=== PATIENT | female | born 1985 | race Caucasian/White ===

== ENCOUNTER 2016-12-15 10:20 | Outpatient (CLI) ==
[2016-05-02 18:26] VITALS: BMI 62.4
--- NOTE | 2016-12-15 11:30 | CT ---
EXAM: CT of the left knee without contrast History: Left knee pain. Comparison: Left knee radiograph 06/16/2016 Technique: Multiplanar CT images through the left knee were obtained without the administration of IV contrast Findings: No acute fracture. Mild lateral subluxation of the patella. Small to moderate knee joint effusion. Anterior subcutaneous edema. No Ayon's cyst. Moderate narrowing of the medial compartment and mild to moderate narrowing of the lateral patellofe moral compartments. There is subchondral sclerosis and osteophyte formation. Impression: 1. No acute fracture. 2. Tricompartmental osteoarthritis which is most significant and moderate in the medial compartment . 3. Mild lateral subluxation of the patella. 4. Small to moderate knee joint effusion and anterior subcutaneous edema. If pain persists, consid er further evaluation with MRI.
== END 2016-12-15 10:21 | disposition home or self-care (01) ==
LOC: RAD 10:20
PROVIDERS: ATTEND Nurse Practitioner Family
DX: M25.562 Pain in left knee (principal); E66.01 Morbid (severe) obesity due to excess calories

== ENCOUNTER 2016-12-16 10:26 | Outpatient (CLI) ==
[2016-05-02 18:26] VITALS: BMI 62.4
--- NOTE | 2016-12-16 11:33 | CT ---
EXAM: CT right knee without contrast HISTORY: Right knee pain COMPARISON: None available TECHNIQUE: Multiple axial images of the right knee were obtained without intravenous contrast image s were reformatted in the sagittal and coronal planes. FINDINGS: Bone mineralization is normal. Mild medial compartment joint space narrowing noted. Mil d tricompartmental marginal osteophyte formation is present. No erosive changes are seen. No fract ure or dislocation identified. Suprapatellar joint effusion is present. Mild subcutaneous edema no rosalind anteriorly. No circumscribed drainable fluid collection detected IMPRESSION: 1. Mild tricompartmental osteoarthritis, greatest in the medial compartment. 2. Joint effusion. 3. Anterior subcutaneous edema.
== END 2016-12-16 10:27 | disposition home or self-care (01) ==
LOC: RAD 10:26
PROVIDERS: ATTEND Nurse Practitioner Family
DX: M25.561 Pain in right knee (principal); E66.01 Morbid (severe) obesity due to excess calories

== ENCOUNTER 2017-02-02 07:16 | Outpatient (CLI) ==
[2016-05-02 18:26] VITALS: BMI 62.4
[2017-02-02 07:34] LABS: BASOPHILS % (AUTO) 0.5 % (0.0-3.0); EOSINOPHILS # (AUTO) 0.4 K/ul (0.0-0.7); HEMATOCRIT 36.9 % (37.0-47.0); IMMATURE GRANULOCYTE % (AUTO) 0.3 % (0.0-5.0); LYMPHOCYTES # (AUTO) 2.1 K/uL (0.60-3.4); LYMPHOCYTES % (AUTO) 24.3 (10.0-50.0); MEAN CORPUSCULAR HEMOGLOBIN 28.1 pg (27.0-31.0); MEAN CORPUSCULAR HGB CONC 32.5 (31.8-35.4); MEAN CORPUSCULAR VOLUME 86.4 fl (81.0-99.0); MONOCYTES # (AUTO) 0.5 K/uL (0.4-2.0); MONOCYTES % (AUTO) 6.2 (0-10); NEUTROPHILS # (AUTO) 5.6 K/ul (2.0-6.9); NEUTROPHILS % (AUTO) 63.7; PLATELET COUNT 177 10^3/uL (140-440); RED BLOOD COUNT 4.27 10^6/ul (4.20-5.40); WHITE BLOOD COUNT 8.76 K/ul (4.6-10.2)
[2017-02-02 08:15] LABS: ANION GAP 12.1; BUN/CREATININE RATIO 10.71; CALCIUM 8.7 mg/dL (8.2-10.2); CREATININE 0.84 mg/dL (0.60-1.30); POTASSIUM 3.1 mmol/L (3.5-5.10)
== END 2017-02-02 07:17 | disposition home or self-care (01) ==
LOC: LAB 07:16
PROVIDERS: ATTEND Nurse Practitioner
DX: E06.3 Autoimmune thyroiditis (principal); E22.9 Hyperfunction of pituitary gland, unspecified; E55.9 Vitamin D deficiency, unspecified; R53.83 Other fatigue; E66.01 Morbid (severe) obesity due to excess calories
CPT/HCPCS: 36415; 80048; 82306; 83036; 84146; 84443; 85025

== ENCOUNTER 2017-03-01 13:23 | Emergency (ER) ==
[2017-03-01 13:27] VITALS: BP 134/86; TEMP 99
[2017-03-01] MEDS ORDERED: MORPHINE 4 MG/ML SYRINGE IM STA (13:36)
[2017-03-01] MEDS ORDERED: DECADRON 4 MG/ML SDV IM STA (13:36)
[2017-03-01] MEDS ORDERED: ZOFRAN 4 MG/2 ML IM STA (13:36)
[2017-03-01 13:43] LABS: URINE PREGNANCY INTERNAL QC INTERNAL QC VALID
--- NOTE | 2017-03-01 14:28 | CT ---
EXAM: CT right knee without contrast HISTORY: Right knee pain and swelling TECHNIQUE: Multi-slice transaxial helical with coronal and sagittal reformed images COMPARISON: CT right knee from 12/16/2016 FINDINGS: The medial femoral tibial joint space is moderately narrowed. Marginal osteophytes arise about the knee. No acute fracture or subluxation are appreciated. A large suprapatellar effusion i s detected. No significant Ayon's cyst is appreciated. There are no loose osteochondral bodies. The patellofemoral joint space is mildly narrowed. The bones are free of suspicious osteolytic or osteoblastic lesions. IMPRESSION: 1. Large suprapatellar effusion without loose osteochondral bodies. 2. No acute fracture or subluxation. 3. Tricompartmental osteoarthritis, most pronounced and moderate in severity at the medial femoral tibial compartment.
--- NOTE | 2017-03-01 14:35 | ED.PDOC ---
General ED Provider: Dr. LG RUST-ER Chief Complaint: Knee Pain/Injury Stated Complaint: my knee hurts bad--mel got bad athritis in it Time Seen by Physician: 13:25 Mode of Arrival: Walk-In Information Source: Patient Exam Limitations: No limitations Primary Care Provider: JAYLON AVILA Nursing and Triage Documentation Reviewed and Agree: Yes Musculoskeletal Complaint Exam - Knee Pain Complaint/Exam Mechanism of Injury: Reports: No known trauma Onset/Duration: several days Symptoms Are: Still present Onset of Pain: Reports: Immediate Initial Severity: Mild Current Severity: Moderate Location: Reports: Discrete (right knee) Character: Reports: Dull, Aching, Stiffness Alleviating: Reports: None Aggravating: Reports: Movement, Weight bearing, Prolonged standing Associated Signs and Symptoms: Reports: Swelling. Denies: Redness, Bruising, Fever, Weakness, Numbness, Tingling Able to Bear Weight: Yes Related History: Reports: Similar episode Septic Arthritis Risk Factors: Reports: None Knee Findings: Present: Swelling, Tenderness, Limited range of motion Tenderness: Present: Pre-patellar Allison Test Positive: No Rao Test Positive: No Limited Range of Motion: Present: Active, Passive, Flexion, Extension Differential Diagnoses: Bursitis, Sprain, Strain, Other Review of Systems - Review Of Systems Constitutional: Reports: No symptoms Eyes: Reports: No symptoms Ears, Nose, Mouth, Throat: Reports: No symptoms Respiratory: Reports: No symptoms Cardiac: Reports: No symptoms GI: Reports: No symptoms : Reports: No symptoms Musculoskeletal: Reports: Joint pain, Joint swelling Skin: Reports: No symptoms Neurological: Reports: No symptoms Endocrine: Reports: No symptoms Hematologic/Lymphatic: Reports: No symptoms All Other Systems: Reviewed and Negative Past Medical History - Past Medical History Previously Healthy: No Endocrine: Reports: Hypothyroid, Dyslipidemia Cardiovascular: Reports: Hypertension Respiratory: Reports: COPD, Asthma Hematological: Reports: None Gastrointestinal: Reports: None, GERD Genitourinary: Reports: None Neuro/Psych: Reports: Anxiety, Depression Musculoskeletal: Reports: Arthritis, Unknown Cancer: Reports: None Last Menstrual Period: 4-5 years ago Other Pertinent Past Medical History: ESS, EMPTY SELLA SYNDROME,oab, - Surgical History General Surgical History: Reports: Cholecystectomy, Tonsillectomy, Orthopedic ( LEFT CARPAL TUNnEL ), Other (Teeth Extractions BIOPSY AND SKIN TAG REMOVAL) - Family History Family History: Reports: Unknown - Social History Smoking Status: Never smoker Hx Substance Use: No Alcohol Screening: None Lives: With family Physical Exam - Physical Exam Appearance: Well-appearing, No pain distress, Well-nourished Pain Distress: Moderate Eyes: LUIS ENT: Ears normal Neck: Supple Respiratory: Airway patent Cardiovascular: RRR, Pulses normal, No rub, No murmur GI/: Soft Musculoskeletal: Limited ROM Skin: Warm, Dry, Normal color Neurological: Sensation intact, Motor intact, Reflexes intact, Cranial nerves intact, Alert, Oriented Psychiatric: Affect appropriate, Mood appropriate Interpretation - Radiology Interpretation Radiology Interpretation By: Radiologist Radiology Results: Positive Exam Interpreted: CT Scan Critical Care Note - Critical Care Note Total Time (mins): 0 Course - Course Orders, Labs, Meds: Lab Review 03/01/17 13:35 Urine Test Negative Orders Category Date Time Status URINE Stat LAB 03/01/17 13:35 Completed Dexamethasone 4 mg/ml Inj [Decadron 4 mg/ml Sdv] MEDS 03/01/17 13:36 Discontinued 4 mg IM ONCE STA Morphine Sulfate [Morphine 4 mg/ml Syringe] MEDS 03/01/17 13:36 Discontinued 4 mg IM ONCE STA Ondansetron HCl/Pf [Zofran 4 mg/2 ml] MEDS 03/01/17 13:36 Discontinued 4 mg IM ONCE STA CT KNEE RIGHT WITHOUT CONTRAST Stat RADS 03/01/17 13:35 Completed Medications Discontinued Medications Generic Name Dose Route Start Last Admin Trade Name Freq PRN Reason Stop Dose Admin Dexamethasone Sodium Phosphate 4 mg 03/01/17 13:36 03/01/17 14:10 Decadron 4 Mg/Ml Sdv IM 03/01/17 13:37 4 mg ONCE STA Administration Morphine Sulfate 4 mg 03/01/17 13:36 03/01/17 14:12 Morphine 4 Mg/Ml Syringe IM 03/01/17 13:37 4 mg ONCE STA Administration Ondansetron HCl 4 mg 03/01/17 13:36 03/01/17 14:12 Zofran 4 Mg/2 Ml IM 03/01/17 13:37 4 mg ONCE STA Administration Vital Signs: Temp Pulse Resp BP Pulse Ox 03/01/17 13:23 99.0 F 117 H 18 134/86 95 Departure - Departure Time of Disposition: 14:35 Disposition: HOME SELF-CARE Discharge Problem: Arthritis of knee Instructions: Arthritis (ED) Condition: Fair Pt referred to PMD for follow-up: Yes Additional Instructions: norco 7.5mg q 4hrs prn pain #15--f/u with pcp Allergies/Adverse Reactions: Allergies tetanus toxoid, adsorbed Adverse Reaction (Verified 03/01/17 13:27) theophylline Adverse Reaction (Verified 03/01/17 13:27) cloth tape Allergy (Mild, Uncoded 03/01/17 13:27) breaks out skin pneumonia vaccine Adverse Reaction (Uncoded 03/01/17 13:27) Home Medications: Ambulatory Orders Medroxyprogesterone Acetate [Provera] 10 mg PO DAILY 08/20/14 [place]-3 Fatty Acids/Fish Oil [Fish Oil 1,000 mg Capsule] 1 each PO BID 12/12/14 Levothyroxine Sodium 112 mcg PO DAILY 05/14/15 Ipratropium/Albuterol Neb [Duoneb] 1 vial NEB RTBID #20 vial.neb 11/07/15 Chlorthalidone 25 mg PO d 01/30/16 Cholecalciferol (Vitamin D3) [Vitamin D3] 5,000 unit PO WEEKLY 06/16/16 Cyanocobalamin (Vitamin B-12) [Vitamin B-12] 1,000 mcg IJ MONTHLY #1 vial Citalopram Hydrobromide [Celexa] 40 mg PO BEDTIME #30 07/23/16 Clonazepam 0.5 mg PO QID #120 07/23/16 Trazodone HCl 150 mg PO BEDTIME #30 07/23/16 [place] Carbonate [[place] Carbonate Er] 450 mg PO BEDTIME #30 10/29/16 Oxybutynin Chloride [Ditropan Xl] 10 mg PO DAILY 12/14/16 Disposition Discussed With: Patient, Family
[2017-03-01 14:45] VITALS: BMI 71.6
== END 2017-03-01 14:41 | disposition home or self-care (01) ==
LOC: ED 13:23
DX: M17.11 Unilateral primary osteoarthritis, right knee (principal)
CPT/HCPCS: 81025; 96372; 99282

== ENCOUNTER 2017-03-22 07:56 | Outpatient (CLI) ==
[2017-03-22 08:31] LABS: ALBUMIN 3.3 g/dL (3.4-5.0); ALBUMIN/GLOBULIN RATIO 1.03; ANION GAP 13.3; BILIRUBIN,TOTAL 0.45 mg/dL (0.00-1.20); BUN/CREATININE RATIO 19.1; CALCIUM 9.4 mg/dL (8.2-10.2); CREATININE 0.89 mg/dL (0.60-1.30); POTASSIUM 4.3 mmol/L (3.5-5.10); TOTAL PROTEIN 6.5 g/dL (6.4-8.2)
== END 2017-03-22 07:57 | disposition home or self-care (01) ==
LOC: LAB 07:56
PROVIDERS: ATTEND Nurse Practitioner
DX: E66.01 Morbid (severe) obesity due to excess calories (principal); Z68.45 Body mass index [BMI] 70 or greater, adult; Z86.79 Personal history of other diseases of the circulatory system; R60.9 Edema, unspecified
CPT/HCPCS: 36415; 80053

== ENCOUNTER 2017-05-14 09:14 | Outpatient (CLI) ==
[2017-05-14 10:11] LABS: BASOPHILS # (AUTO) 0.1 K/uL (0-0.2); BASOPHILS % (AUTO) 0.6 % (0.0-3.0); EOSINOPHILS # (AUTO) 0.4 K/ul (0.0-0.7); EOSINOPHILS % (AUTO) 4.9 % (0.0-7.0); HEMATOCRIT 37.3 % (37.0-47.0); HEMOGLOBIN 12.5 g/dl (12.0-16.0); IMMATURE GRANULOCYTE % (AUTO) 0.4 % (0.0-5.0); LYMPHOCYTES # (AUTO) 1.9 K/uL (0.60-3.4); LYMPHOCYTES % (AUTO) 21.9 (10.0-50.0); MEAN CORPUSCULAR HEMOGLOBIN 28.5 pg (27.0-31.0); MEAN CORPUSCULAR HGB CONC 33.5 (31.8-35.4); MEAN CORPUSCULAR VOLUME 85.2 fl (81.0-99.0); MONOCYTES # (AUTO) 0.6 K/uL (0.4-2.0); MONOCYTES % (AUTO) 7.3 (0-10); NEUTROPHILS # (AUTO) 5.5 K/ul (2.0-6.9); NEUTROPHILS % (AUTO) 64.9; PLATELET COUNT 181 10^3/uL (140-440); RED BLOOD COUNT 4.38 10^6/ul (4.20-5.40); WHITE BLOOD COUNT 8.45 K/ul (4.6-10.2)
[2017-05-14 10:12] LABS: BILIRUBIN,URINE Negative (NEGATIVE); KETONES,URINE Negative (NEGATIVE); LEUKOCYTE ESTERASE ,URINE Negative (NEGATIVE); NITRITE,URINE Negative (NEGATIVE); PROTEIN,URINE Negative (NEGATIVE); URINE, BLOOD Negative (NEGATIVE)
[2017-05-14 10:31] LABS: ALANINE AMINOTRANSFERASE 14 U/L (12-78); ALBUMIN 3.4 g/dL (3.4-5.0); ALBUMIN/GLOBULIN RATIO 1.06; ALKALINE PHOSPHATASE 48 U/L (42-98); AMYLASE 33 U/L (25-115); ANION GAP 11.4; ASPARTATE AMINO TRANSFERASE 10 U/L (15-37); BILIRUBIN,TOTAL 0.38 mg/dL (0.00-1.20); BLOOD UREA NITROGEN 17 mg/dL (7-18); BUN/CREATININE RATIO 19.31; CALCIUM 9.7 mg/dL (8.2-10.2); CARBON DIOXIDE 29 mmol/L (21-32); CHLORIDE 101 mmol/L (98-107); CREATININE 0.88 mg/dL (0.60-1.30); GLUCOSE 87 mg/dL (70-110); POTASSIUM 3.4 mmol/L (3.5-5.10); SODIUM 138 mmol/L (136-145); TOTAL PROTEIN 6.6 g/dL (6.4-8.2)
[2017-05-14 10:38] LABS: LIPASE < 4 U/L (8-78)
[2017-05-14 10:39] LABS: ADD URINE MICROSCOPIC NO
--- NOTE | 2017-05-14 10:57 | DI ---
EXAM: Abdominal series HISTORY: Unspecified abdominal pain COMPARISON: None TECHNIQUE: Supine upright views of the abdomen were performed FINDINGS: No dilated loops of small bowel. Air and stool in the colon. Mild fecal retention. No fr ee air identified beneath the diaphragm. No abnormal calcifications. Surgical clips right upper jasmyne drant. Granulomatous calcification in the spleen. IMPRESSION: Mild fecal retention.
== END 2017-05-14 09:15 | disposition home or self-care (01) ==
LOC: LAB 09:14
PROVIDERS: ATTEND Nurse Practitioner Family
DX: R10.9 Unspecified abdominal pain (principal); K59.00 Constipation, unspecified; M25.562 Pain in left knee
CPT/HCPCS: 36415; 80053; 81001; 82150; 83690; 85025

== ENCOUNTER 2017-07-07 12:00 | Outpatient (CLI) ==
[2017-05-26 14:47] VITALS: BMI 70.0
[2017-07-07 12:53] LABS: BASOPHILS # (AUTO) 0.1 K/uL (0-0.2); BASOPHILS % (AUTO) 0.6 % (0.0-3.0); EOSINOPHILS # (AUTO) 0.4 K/ul (0.0-0.7); EOSINOPHILS % (AUTO) 5.2 % (0.0-7.0); HEMATOCRIT 38.3 % (37.0-47.0); HEMOGLOBIN 12.6 g/dl (12.0-16.0); IMMATURE GRANULOCYTE % (AUTO) 0.4 % (0.0-5.0); LYMPHOCYTES # (AUTO) 1.5 K/uL (0.60-3.4); MEAN CORPUSCULAR HEMOGLOBIN 28.2 pg (27.0-31.0); MEAN CORPUSCULAR HGB CONC 32.9 (31.8-35.4); MEAN CORPUSCULAR VOLUME 85.7 fl (81.0-99.0); MONOCYTES # (AUTO) 0.5 K/uL (0.4-2.0); MONOCYTES % (AUTO) 6.2 (0-10); NEUTROPHILS # (AUTO) 5.4 K/ul (2.0-6.9); NEUTROPHILS % (AUTO) 68.6; PLATELET COUNT 184 10^3/uL (140-440); RED BLOOD COUNT 4.47 10^6/ul (4.20-5.40); WHITE BLOOD COUNT 7.89 K/ul (4.6-10.2)
[2017-07-07 13:38] LABS: ALBUMIN 3.3 g/dL (3.4-5.0); ALBUMIN/GLOBULIN RATIO 0.87; ANION GAP 10.4; BILIRUBIN,TOTAL 0.43 mg/dL (0.00-1.20); BUN/CREATININE RATIO 13.18; CALCIUM 9.4 mg/dL (8.2-10.2); CREATININE 0.91 mg/dL (0.60-1.30); POTASSIUM 3.4 mmol/L (3.5-5.10); TOTAL PROTEIN 7.1 g/dL (6.4-8.2)
[2017-07-08 06:13] LABS: PROLACTIN 15.7 ng/mL (4.8-23.3)
[2017-07-08 07:22] LABS: LITHIUM 0.5 mmol/L (0.6-1.2)
== END 2017-07-07 12:01 | disposition home or self-care (01) ==
LOC: LAB 12:00
PROVIDERS: ATTEND Nurse Practitioner
DX: E22.9 Hyperfunction of pituitary gland, unspecified (principal); E03.9 Hypothyroidism, unspecified; E87.6 Hypokalemia; E55.9 Vitamin D deficiency, unspecified; Z79.899 Other long term (current) drug therapy
CPT/HCPCS: 36415; 80053; 80178; 82306; 84146; 84439; 84443; 85025

== ENCOUNTER 2017-07-17 20:43 | Emergency (ER) ==
[2017-07-17 20:44] VITALS: BMI 70.0
[2017-07-17 20:54] VITALS: BP 137/80; TEMP 98.3
--- NOTE | 2017-07-17 21:09 | ED.PDOC ---
General ED Provider: Dr. GERSON CARUSO Chief Complaint: Extremity Swelling/Pain Stated Complaint: injured right knee 2 days ago, its been hurting ever since and has some swelling. Time Seen by Physician: 21:07 Mode of Arrival: Walk-In Information Source: Patient, Family Primary Care Provider: GERSON [facility]USO[facility] Nursing and Triage Documentation Reviewed and Agree: Yes Musculoskeletal Complaint Exam - Knee Pain Complaint/Exam Mechanism of Injury: Reports: Trauma Symptoms Are: Still present Onset of Pain: Reports: Immediate Initial Severity: Moderate Current Severity: Severe Location: Reports: Discrete Character: Reports: Aching, Throbbing Alleviating: Reports: None Aggravating: Reports: Movement, Weight bearing Associated Signs and Symptoms: Reports: Swelling. Denies: Redness, Bruising, Fever, Weakness, Numbness, Tingling Able to Bear Weight: No Related History: Reports: Similar episode Septic Arthritis Risk Factors: Reports: None Gout Risk Factors: Reports: Obesity Knee Findings: Present: Swelling. Absent: Ecchymosis, Abnormal contour Tenderness: Present: Pre-patellar, Joint Allison Test Positive: No Rao Test Positive: No Limited Range of Motion: Present: Active, Passive, Flexion, Extension Differential Diagnoses: Closed Fracture, Sprain, Strain Review of Systems - Review Of Systems Constitutional: Reports: No symptoms Eyes: Reports: No symptoms Ears, Nose, Mouth, Throat: Reports: No symptoms Respiratory: Reports: No symptoms Cardiac: Reports: No symptoms GI: Reports: No symptoms : Reports: No symptoms Musculoskeletal: Reports: Joint pain Skin: Reports: No symptoms Neurological: Reports: No symptoms Endocrine: Reports: No symptoms Hematologic/Lymphatic: Reports: No symptoms All Other Systems: Reviewed and Negative Past Medical History - Past Medical History Previously Healthy: No Endocrine: Reports: Hypothyroid, Dyslipidemia Cardiovascular: Reports: Hypertension Respiratory: Reports: COPD, Asthma Hematological: Reports: None Gastrointestinal: Reports: None, GERD Genitourinary: Reports: None Neuro/Psych: Reports: Anxiety, Depression Musculoskeletal: Reports: Arthritis, Unknown Cancer: Reports: None Last Menstrual Period: 5 yrs ago - on provera Other Pertinent Past Medical History: ESS, EMPTY SELLA SYNDROME,oab, - Surgical History General Surgical History: Reports: Cholecystectomy, Tonsillectomy, Orthopedic ( LEFT CARPAL TUNnEL ), Other (Teeth Extractions BIOPSY AND SKIN TAG REMOVAL) - Family History Family History: Reports: Unknown - Social History Smoking Status: Never smoker Hx Substance Use: No Alcohol Screening: None - Immunizations Tetanus Shot up to Date: No (allergic - anaphalactic) Physical Exam - Physical Exam Appearance: Obese (morbid) Pain Distress: Moderate Eyes: LUIS, EOMI, Conjunctiva clear ENT: Ears normal, Nose normal, Oropharynx normal Respiratory: Airway patent, Breath sounds clear, Breath sounds equal, Respirations nonlabored Cardiovascular: RRR, Pulses normal, No rub, No murmur GI/: Soft, Nontender, No masses, Bowel sounds normal, No Organomegaly Musculoskeletal: No edema, No calf tenderness, Limited ROM, Limited strength Skin: Warm, Dry, Normal color Neurological: Sensation intact, Motor intact, Reflexes intact, Cranial nerves intact, Alert, Oriented Psychiatric: Affect appropriate, Mood appropriate Critical Care Note - Critical Care Note Total Time (mins): 15 Course - Course Orders, Labs, Meds: Orders Category Date Time Status Morphine Sulfate [Morphine 2 mg/ml Syringe] MEDS 07/17/17 21:06 Discontinued 2 mg IM ONCE STA Ondansetron HCl/Pf [Zofran 4 mg/2 ml] MEDS 07/17/17 21:06 Discontinued 4 mg IM ONCE STA CT KNEE RIGHT WITHOUT CONTRAST Stat RADS 07/17/17 21:06 Taken Medications Discontinued Medications Generic Name Dose Route Start Last Admin Trade Name Sara PRN Reason Stop Dose Admin Morphine Sulfate 2 mg 07/17/17 21:06 07/17/17 21:24 Morphine 2 Mg/Ml Syringe IM 07/17/17 21:07 2 mg ONCE STA Administration Ondansetron HCl 4 mg 07/17/17 21:06 07/17/17 21:24 Zofran 4 Mg/2 Ml IM 07/17/17 21:07 4 mg ONCE STA Administration Vital Signs: Temp Pulse Resp BP Pulse Ox 07/17/17 20:47 98.3 F 98 H 22 137/80 97 Departure - Departure Time of Disposition: 21:36 Disposition: HOME SELF-CARE Discharge Problem: Knee pain, acute Qualifiers: Laterality: right Qualified Code(s): M25.561 - Pain in right knee Instructions: Swollen Knee Joint (ED) Condition: Good Pt referred to PMD for follow-up: Yes Additional Instructions: REST HOT PACK F/U WITH [facility] Prescriptions: Hydrocodone Bit/Acetaminophen [[place] 7.5-325] 1 each PO Q8H #10 tablet Prednisone 10 mg PO BIDWM #14 tablet Allergies/Adverse Reactions: Allergies tetanus toxoid, adsorbed Adverse Reaction (Verified 07/17/17 20:54) theophylline Adverse Reaction (Verified 07/17/17 20:54) cloth tape Allergy (Mild, Uncoded 07/17/17 20:54) breaks out skin pneumonia vaccine Adverse Reaction (Uncoded 07/17/17 20:54) Home Medications: Ambulatory Orders Medroxyprogesterone Acetate [Provera] 10 mg PO DAILY 08/20/14 [place]-3 Fatty Acids/Fish Oil [Fish Oil 1,000 mg Capsule] 1 each PO BID 12/12/14 Ipratropium/Albuterol Neb [Duoneb] 1 vial NEB RTBID #20 vial.neb 11/07/15 Chlorthalidone 25 mg PO d 01/30/16 Cholecalciferol (Vitamin D3) [Vitamin D3] 5,000 unit PO WEEKLY 06/16/16 Cyanocobalamin (Vitamin B-12) [Vitamin B-12] 1,000 mcg IJ MONTHLY #1 vial Citalopram Hydrobromide [Celexa] 40 mg PO BEDTIME #30 07/23/16 Clonazepam 0.5 mg PO QID #120 07/23/16 Trazodone HCl 150 mg PO BEDTIME #30 07/23/16 [place] Carbonate [[place] Carbonate Er] 450 mg PO BEDTIME #30 10/29/16 Oxybutynin Chloride [Ditropan Xl] 10 mg PO DAILY 12/14/16 Budesonide/Formoterol Fumarate [Symbicort 160-4.5 Mcg Inhaler] 10.2 gm IH DAILY 03/12/17 Levothyroxine Sodium 112 mcg PO DAILY 03/12/17 Metformin HCl [Metformin HCl ER] 500 mg PO BID 05/26/17 Hydrocodone Bit/Acetaminophen [[place] 7.5-325] 1 each PO Q8H #10 tablet 07/17/17 Potassium Chloride [K-Dur] 20 meq PO DIRECTED 07/17/17 Potassium Chloride [K-Dur] 40 meq PO DIRECTED 07/17/17 Prednisone 10 mg PO BIDWM #14 tablet 07/17/17 Disposition Discussed With: Patient, Family
[2017-07-17] MEDS: ZOFRAN 4 MG/2 ML IM STA (21:24)
[2017-07-17] MEDS: MORPHINE 2 MG/ML SYRINGE IM STA (21:24)
--- NOTE | 2017-07-17 21:35 | CT ---
EXAM: CT scan of the right knee without contrast HISTORY: Injury, pain TECHNIQUE: Imaging of the right knee was performed without contrast. Axial images and coronal and s agittal reconstructions were provided for interpretation. FINDINGS: No definite acute fractures are seen. There is moderate to severe loss of height of the m edial compartment of the right knee. There is mild loss of height of the lateral compartment of the right knee. Additional degenerative changes are seen within the patellofemoral articulation. There i s a small suprapatellar joint effusion. IMPRESSION: No acute fracture dislocation seen within the right knee. Tricompartmental arthritis of the right knee. Small suprapatellar joint effusion.
== END 2017-07-17 21:47 | disposition home or self-care (01) ==
LOC: ED 20:43
DX: M25.561 Pain in right knee (principal); M25.461 Effusion, right knee
CPT/HCPCS: 96372; 99282

== ENCOUNTER 2017-10-02 14:59 | Emergency (ER) ==
[2017-10-02 15:04] VITALS: BP 139/87; TEMP 98.2; BMI 64.0
--- NOTE | 2017-10-02 15:41 | ED.PDOC ---
General ED Provider: Dr. CELESTE ABURTO Chief Complaint: Tooth Problem Stated Complaint: dental pain Time Seen by Physician: 15:00 Mode of Arrival: Walk-In Information Source: Patient Exam Limitations: No limitations [facility] and Triage Documentation Reviewed and Agree: Yes Reviewed sepsis parameters & appropriate labs ordered?: Yes System Inflammatory Response Syndrome: Not Applicable Sepsis Protocol: For patient's 13 years and over: Temp is 96.8 and below OR 101 and greater Pulse >90 BPM Resp >20/minute Acutely Altered Mental Status Are patient's symptoms suggestive of a new infection, such as: -Pneumonia -Skin, Soft Tissue -Endocarditis -UTI -Bone, Joint Infection -Implantable Device -Acute Abdominal Infection -Wound Infection -Meningitis -Blood Stream Catheter Infection -Unknown EENT Complaint Exam - Dental/Oral Complaint/Exam Mechanism of Injury: No known trauma Onset/Duration: dental painx 1 week Timing: Constant Initial Severity: Moderate Current Severity: Moderate Character: Reports: Aching Aggravating: Reports: Heat, Cold, Chewing Alleviating: Reports: None Associated Signs and Symptoms: Denies: Swelling, Discharge, Fever, Foul odor, Foul taste in mouth Related History: Reports: Similar episode Cardiac Risk Factors: Reports: None Dental/Oral Surgical History: Reports: None Facial Swelling Present: No Bleeding Present: No Oropharynx Findings: Absent: Clots, Active bleeding Septal Hematoma: No Foreign Body Present: No Dysphagia Present: No Drooling Present: No Asymmetrical Tonsillar Swelling Present: No Uvula Midline: No Britt-tonsillar Fluctuence: No Trismus Present: No Palatal Petechiae Present: No Scarlatinaform Rash Present: No Teeth Picture: 1 - decay Differential Diagnoses: Dental Caries Review of Systems - Review Of Systems Constitutional: Reports: No symptoms Eyes: Reports: No symptoms Ears, Nose, Mouth, Throat: Reports: No symptoms Respiratory: Reports: No symptoms Cardiac: Reports: No symptoms GI: Reports: No symptoms : Reports: No symptoms Musculoskeletal: Reports: No symptoms Skin: Reports: No symptoms Neurological: Reports: No symptoms Endocrine: Reports: No symptoms Hematologic/Lymphatic: Reports: No symptoms All Other Systems: Reviewed and Negative Past Medical History - Past Medical History Previously Healthy: No Endocrine: Reports: Hypothyroid, Dyslipidemia Cardiovascular: Reports: Hypertension Respiratory: Reports: COPD, Asthma Hematological: Reports: None Gastrointestinal: Reports: None, GERD Genitourinary: Reports: None Neuro/Psych: Reports: Anxiety, Depression Musculoskeletal: Reports: Arthritis, Unknown Cancer: Reports: None Last Menstrual Period: 7 yrs ago Other Pertinent Past Medical History: ESS, EMPTY SELLA SYNDROME,oab, - Surgical History General Surgical History: Reports: Cholecystectomy, Tonsillectomy, Orthopedic ( LEFT CARPAL TUNnEL ), Other (Teeth Extractions BIOPSY AND SKIN TAG REMOVAL) - Family History Family History: Reports: Unknown - Social History Smoking Status: Never smoker Hx Substance Use: No Alcohol Screening: None Physical Exam - Physical Exam Appearance: Well-appearing, No pain distress, Well-nourished Eyes: LUIS, EOMI, Conjunctiva clear ENT: Ears normal, Nose normal, Oropharynx normal Respiratory: Airway patent, Breath sounds clear, Breath sounds equal, Respirations nonlabored Cardiovascular: RRR, Pulses normal, No rub, No murmur GI/: Soft, Nontender, No masses, Bowel sounds normal, No Organomegaly Musculoskeletal: Normal strength, ROM intact, No edema, No calf tenderness Skin: Warm, Dry, Normal color Neurological: Sensation intact, Motor intact, Reflexes intact, Cranial nerves intact, Alert, Oriented Psychiatric: Affect appropriate, Mood appropriate Critical Care Note - Critical Care Note Total Time (mins): 0 Course - Course Vital Signs: Temp Pulse Resp BP Pulse Ox 10/02/17 14:59 98.2 F 106 H 20 139/87 94 L Departure - Departure Time of Disposition: 15:39 Disposition: HOME SELF-CARE Discharge Problem: Toothache Instructions: Toothache (ED) Condition: Good Pt referred to PMD for follow-up: Yes Prescriptions: Hydrocodone/Acetaminophen [[place] 10-325 Tablet] 1 each PO Q8HR #20 tablet Allergies/Adverse Reactions: Allergies tetanus toxoid, adsorbed Adverse Reaction (Verified 10/02/17 15:06) theophylline Adverse Reaction (Verified 10/02/17 15:06) cloth tape Allergy (Mild, Uncoded 07/17/17 20:54) breaks out skin pneumonia vaccine Adverse Reaction (Uncoded 07/17/17 20:54) Home Medications: Ambulatory Orders Medroxyprogesterone Acetate [Provera] 10 mg PO DAILY 08/20/14 [place]-3 Fatty Acids/Fish Oil [Fish Oil 1,000 mg Capsule] 1 each PO BID 12/12/14 Ipratropium/Albuterol Neb [Duoneb] 1 vial NEB RTBID #20 vial.neb 11/07/15 Chlorthalidone 25 mg PO d 01/30/16 Cholecalciferol (Vitamin D3) [Vitamin D3] 5,000 unit PO WEEKLY 06/16/16 Cyanocobalamin (Vitamin B-12) [Vitamin B-12] 1,000 mcg IJ MONTHLY #1 vial Citalopram Hydrobromide [Celexa] 40 mg PO BEDTIME #30 07/23/16 Clonazepam 0.5 mg PO QID #120 07/23/16 Trazodone HCl 150 mg PO BEDTIME #30 07/23/16 [place] Carbonate [[place] Carbonate Er] 450 mg PO BEDTIME #30 10/29/16 Oxybutynin Chloride [Ditropan Xl] 10 mg PO DAILY 12/14/16 Budesonide/Formoterol Fumarate [Symbicort 160-4.5 Mcg Inhaler] 10.2 gm IH DAILY 03/12/17 Levothyroxine Sodium 112 mcg PO DAILY 03/12/17 Metformin HCl [Metformin HCl ER] 500 mg PO BID 05/26/17 Potassium Chloride [K-Dur] 20 meq PO DIRECTED 07/17/17 Potassium Chloride [K-Dur] 40 meq PO DIRECTED 07/17/17 Hydrocodone/Acetaminophen [[place] 10-325 Tablet] 1 each PO Q8HR #20 tablet
== END 2017-10-02 15:49 | disposition home or self-care (01) ==
LOC: ED 14:59
DX: K08.89 Other specified disorders of teeth and supporting structures (principal); K02.7 Dental root caries
CPT/HCPCS: 99282

== ENCOUNTER 2017-10-08 07:01 | Outpatient (CLI) | END 2017-10-08 07:02 | disposition home or self-care (01) | LOC: LAB 07:01 | PROVIDERS: ATTEND Nurse Practitioner | DX: E87.6 Hypokalemia (principal); R60.0 Localized edema; E53.8 Deficiency of other specified B group vitamins; E55.9 Vitamin D deficiency, unspecified | CPT/HCPCS: 36415; 80048; 82306; 82607 ==

== ENCOUNTER 2017-11-01 06:48 | Outpatient (CLI) | END 2017-11-01 06:49 | disposition home or self-care (01) | LOC: LAB 06:48 | PROVIDERS: ATTEND Nurse Practitioner | DX: E87.6 Hypokalemia (principal); R60.0 Localized edema; E55.9 Vitamin D deficiency, unspecified | CPT/HCPCS: 36415; 80048 ==

== ENCOUNTER 2017-11-17 07:37 | Outpatient (CLI) | END 2017-11-17 07:38 | disposition home or self-care (01) | LOC: LAB 07:37 | PROVIDERS: ATTEND Psychiatry & Neurology Psychiatry | DX: F32.81 Premenstrual dysphoric disorder (principal); F41.8 Other specified anxiety disorders | CPT/HCPCS: 36415; 80053; 80178; 82565; 84439; 84443; 85025 ==

== ENCOUNTER 2017-12-01 08:37 | Outpatient (CLI) | END 2017-12-01 08:38 | disposition home or self-care (01) | LOC: WOUND 08:37 | PROVIDERS: ATTEND Nurse Practitioner Family | DX: S70 Superficial injury of hip and thigh (principal); E66.9 Obesity, unspecified; E03.9 Hypothyroidism, unspecified | CPT/HCPCS: 11042; 99201; 99202 ==

== ENCOUNTER 2017-12-08 09:55 | Outpatient (CLI) | END 2017-12-08 09:56 | disposition home or self-care (01) | LOC: WOUND 09:55 | PROVIDERS: ATTEND Nurse Practitioner Family | DX: S70 Superficial injury of hip and thigh (principal); E66.9 Obesity, unspecified; E03.9 Hypothyroidism, unspecified ==

== ENCOUNTER 2017-12-21 11:15 | Outpatient (CLI) ==
--- NOTE | 2017-12-21 12:27 | US ---
EXAM: Thyroid ultrasound HISTORY: Autoimmune thyroiditis COMPARISON: None TECHNIQUE: Thyroid ultrasound was performed FINDINGS: Right thyroid measures 2.7 x 3.2 x 6.9 cm. Left thyroid measures 2.6 x 2.3 x 5.6 cm. Thy roid isthmus measures 1.7 cm. Thyroid heterogeneous in echogenicity. Thyroid increased in vasculari ty. There are multiple bilateral thyroid nodules. In the right inferior thyroid, there is a solid i soechoic nodule measuring the 2.8 x 2.3 x 3.0 cm. Area of nodularity measured in the right mid thyro id is favored to represent pseudo nodularity secondary to heterogeneous thyroid tissue. Several hypo echoic nodules and/or pseudo nodules are seen in the left thyroid measuring up to 1.2 cm. IMPRESSION: 1. Enlarged heterogeneous hypervascular thyroid. 2. Dominant nodule right inferior thyroid measuring 3.0 cm. Fine-needle aspiration of this nodule i s recommended. 3. Additional bilateral thyroid nodules. Sonographic follow-up recommended in 6 months for reevalua tion.
== END 2017-12-21 11:16 | disposition home or self-care (01) ==
LOC: RAD 11:15
PROVIDERS: ATTEND Nurse Practitioner
DX: E06.3 Autoimmune thyroiditis (principal)

== ENCOUNTER 2017-12-22 09:11 | Outpatient (CLI) | END 2017-12-22 09:12 | disposition home or self-care (01) | LOC: WOUND 09:11 | PROVIDERS: ATTEND Nurse Practitioner Family | DX: S70 Superficial injury of hip and thigh (principal); E66.9 Obesity, unspecified; E03.9 Hypothyroidism, unspecified | CPT/HCPCS: 36415; 80053; 99213 ==

== ENCOUNTER 2018-01-14 09:34 | Outpatient (CLI) | END 2018-01-14 09:35 | disposition home or self-care (01) | LOC: LAB 09:34 | PROVIDERS: ATTEND Physician Assistant | DX: D64.9 Anemia, unspecified (principal); E53.8 Deficiency of other specified B group vitamins; R60.9 Edema, unspecified | CPT/HCPCS: 36415; 80053; 82607; 82728; 83540; 83550; 85025 ==

== ENCOUNTER 2018-01-19 06:14 | Outpatient (CLI) | END 2018-01-19 06:15 | disposition home or self-care (01) | LOC: LAB 06:14 | PROVIDERS: ATTEND Nurse Practitioner | DX: E03.9 Hypothyroidism, unspecified (principal); Z79.899 Other long term (current) drug therapy; R60.9 Edema, unspecified | CPT/HCPCS: 36415; 80053; 84439; 84443 ==

== ENCOUNTER 2018-01-21 11:04 | Outpatient (CLI) ==
--- NOTE | 2018-01-21 13:24 | DI ---
EXAM: Chest two views HISTORY: Pulmonary congestion COMPARISON: 11/17/2015 TECHNIQUE: Two views of the chest were performed FINDINGS: Low lung volumes. The lungs are grossly clear. There is no pleural effusion or pneumotho rax. The heart is normal in size. The mediastinal contour is normal. There are no acute abnormalit ies of the bones. IMPRESSION: Low lung volumes. No definite acute cardiopulmonary process.
== END 2018-01-21 11:05 | disposition home or self-care (01) ==
LOC: LAB 11:04
PROVIDERS: ATTEND Physician Assistant
DX: Z51.81 Encounter for therapeutic drug level monitoring (principal); R60.0 Localized edema; J81.1 Chronic pulmonary edema; R06.00 Dyspnea, unspecified
CPT/HCPCS: 36415; 80053; 80178; 93005; 93010

== ENCOUNTER 2018-01-25 06:24 | Outpatient (CLI) ==
--- NOTE | 2018-01-25 10:47 | ECHO2D ---
Date of Exam: 01/25/18 Ordering Physician: RAFA ETIENNE APRN Room #: OP Reason for Echo: EDEMA M-Mode Normal Adult Results LV Dimensions Normal Adult Results AoV Opening excursions >1.6 >1.6 LVEDD-base- 3.5-5.8 4.0 Ao root dimensions 2.0-3.7 3.3 LVESD-base- 3.1-4.6 L. Atrium dimensions 1.9-3.8 4.5 Post. Wall thickness 0.8-1.1 1.3 IV septum (thickness) 0.7-1.2 1.3 Post. Wall excursion 0.72-1.3 NORMAL Septal motion NORMAL Systolic motion R. Ventricular cavity 1.5-2.0 NORMAL LVEF 60% 58% Paradoxical septal wall motion NORMAL 2-D : ENLARGED LEFT ATRIAL CAVITY, NORMAL VALVES, NO EFFUSION, NO THROMBUS, NORMAL LEFT VENTRICULAR CONTRACTILITY--NORMAL LEFT VENTRICLE SIZE M-MODE: MV: NORMAL AV: NORMAL TV: NORMAL PV: CHAMBER SIZE: ENLARGED LEFT ATRIAL CAVITY WALL MOTION: NORMAL PERICARDIUM: NORMAL INTERPRETATION: 1. LEFT VENTRICULAR HYPERTROPHY WITH ENLARGED LEFT ATRIAL CAVITY 2. NORMAL VALVES 3. NORMAL LEFT VENTRICULAR CONTRACTILITY MTDD
== END 2018-01-25 06:25 | disposition home or self-care (01) ==
LOC: CAR 06:24
PROVIDERS: ATTEND Physician Assistant
DX: R60.9 Edema, unspecified (principal)

== ENCOUNTER 2018-01-26 11:00 | Outpatient (RCR) ==
--- NOTE | 2018-01-21 16:40 | RS.OPPTEV2 ---
Date of Note: 01/20/18 Visit #: 1 Date of Evaluation: 01/20/18 Payer Source: Medicaid Surgery Performed?: No Treatment Diagnosis: R knee pain History of Condition/Mechanism of Injury:: Patient states that she has had knee pain for several years but has gotten worse lately Prior Level of Function.....Patient was independent with: ADL's, Self Care, Caregiving, Ambulation/Mobility, Community Integration/Access Functional Limitations: ADL's, Standing, Bending, Squatting, Ambulation, Community Access/Integration Current Subjective/complaints:: pt states she has pain in B knees with the R being worse than the L LE. Treatment Side (optional): Right *Precautions: n/a Medical History Medical History: COPD, Arthritis, Cancer ("female" per pt) Medical History Comments:: Thyroid disease, reports diagnosis of Fibromyalgia Smoking Status: Never smoker Hx Home Medications: pt states she will bring a list next visit Patient's Goals: decreased pain in knees Pain Assessment - Pain Description Pain Location: R knee Pain Description: Aching Current Pain Intensity: 8.5 Worst Pain Intensity: 10 Functional Outcome Measure LE Functional Scale: 15 (81) - G Codes & Severity Modifier G Codes & Modifier: n/a Source of G Code score: n/a Observation - Observation Inspection: pt with edema BLE Posture: Forward Head, Rounded Shoulders Handedness: Right Gait - Gait Pattern General Gait Pattern Observation: Crouched Gait, Decrease Stride Lngth (R), Decrease Stride Lngth (L), Lateral Trunk Lean (pt amb with increased lat sway, decreased step length, flexed posture. ) General Range of Motion: BUE WFL's. LLE knee flex limited due to pain and soft tissue. Muscle Strength: BUE 4/5. LLE hip flex 4-/5, knee flex 3/5, ext 4-/5 - Left Knee ROM Left Knee Extension: 0 Left Knee Flexion: 90 Knee ROM Limitations: Soft Tissue Tightness, Muscle Weakness, Pain - Right Knee ROM Right Knee Extension: -5 Right Knee Flexion: 70 Knee ROM Limitations: Soft Tissue Tightness, Muscle Weakness, Pain - Left Knee Strength Left Knee Extension: 4 Good Left Knee Flexion: 3 Fair - Right Knee Strength Right Knee Extension: 3- Fair- Right Knee Flexion: 3- Fair- - Special Tests Comments: Tests inconclusive due to adipose tissue. pt with pain with all ROM R knee. Difficult to manipulate the patella due to adipose tissue Palpation Palpation Findings: Tenderness (tenderness to palpation to anterior/lateral knee , and patella. ) Sensation - Sensation Right Upper Extremity: Intact/Normal Left Upper Extremity: Intact/Normal Right Lower Extremity: Intact/Normal Left Lower Extremity: Intact/Normal Balance - Sitting Balance Static Sitting Balance: Normal Dynamic Sitting Balance: Normal - Standing Balance Static Standing Balance: Good Dynamic Standing Balance: Fair - Comments Balance Assessment Comments: pt with increased lat sway and decreased balance. pt states her cane broke and is being repaired. Feel pt balance would be improved with use of cane. - Heat/Cryotherapy Treatment: Cryotherapy Comments:: R knee (ant/post knee) Interventions - Exercise/Activities/Manual Therapy Exercises/Activities: pt performed RLE AP, QS, SAQ, hip abd/add x 10 reps. Manual Therapy: NA HOME EXERCISE PROGRAM: pt given written HEP including AP, QS, SAQ, hip abd/add - Charges Timed Code Treatment Minutes: 52 Total Treatment Time: 60 Procedures billed for this date of service:: eval low/ cold pack EVALUATION COMPLEXITY LEVEL EVALUATION COMPLEXITY LEVEL: HISTORY: Medium (OA, COPD, CA), EXAM OF BODY SYSTEMS: Medium (pain, ROM, strength, gait, balance ), CLINICAL PRESENTATION: Low (stable), CLINICAL DECISION MAKING: Low Assessment Assessment: pt presents with edema R knee with pain with ROM and weight bearing as well as decreased strength and gait ability. Feel pt would benefit from skilled PT for therex for LE strengthening, balance to improve functional mobility and decrease risk of falls. 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 Goal #1: pt independent with HEP Goal to be met by: 02/18/18 (20%) Goal #2: pt rate pain <5/10 with activity Goal to be met by: 02/18/18 Goal #3: Improve LE functional score to 30/80 Goal to be met by: 02/18/18 Goal #4: Improve R knee ROM Flex 95 ext 0 Goal to be met by: 02/18/18 Plan - Treatment to be Provided Procedures: Therapeutic Exercises, Therapeutic Activity, Manual Therapy, Patient Education Modalities: Electrical Stimulation, Ultrasound/Phonophoresis, Cryotherapy, Hot Packs - Treatment Plan Frequency: 2 X week Duration: 4 weeks ORDER # VISITS AND/OR THROUGH DATE: 02/18/18 - Treatment Code (1) Right knee pain Code(s): M25.561 - PAIN IN RIGHT KNEE Qualifiers: Chronicity: chronic Qualified Code(s): M25.561 - Pain in right knee; G89.29 - Other chronic pain (2) Joint effusion Code(s): M25.40 - EFFUSION, UNSPECIFIED JOINT (3) Joint stiffness Code(s): M25.60 - STIFFNESS OF UNSPECIFIED JOINT, NOT ELSEWHERE CLASSIFIED (4) Muscle weakness Code(s): M62.81 - MUSCLE WEAKNESS (GENERALIZED) (5) Osteoarthritis Code(s): M19.90 - UNSPECIFIED OSTEOARTHRITIS, UNSPECIFIED SITE Qualifiers: Osteoarthritis location: unspecified site Osteoarthritis type: unspecified Qualified Code(s): M19.90 - Unspecified osteoarthritis, unspecified site
--- NOTE | 2018-01-24 15:33 | RS.OPPTDN ---
Subjective Date of Note: 01/24/18 Visit #: 2 Date of Evaluation: 01/20/18 Payer Source: Medicaid Treatment Diagnosis: R knee pain Current Subjective/complaints:: Patient says her knee pain is the same since she was evaluated. Admits performing hip abd/add in supine was the most bothersome of HEP. Reports she has initiated HEP and trying to also drink more water. She says she has a cardiac echo tomorrow morning to find out why she is so swollen and lasix is not helping her. She reports not taking any pain medication due to her MD forgetting and not refilling it when asked. *Precautions: n/a Pain Assessment - Pain Description Pain Location: Bilateral knees, R more than L Interventions - Exercise/Activities/Manual Therapy Exercises/Activities: Patient performs bilateral LE general strengthening exercises: QS, heel slides, hip abd/add, pillow squeezes, SAQ 1#, DF red tband , all 2x10. Sitting: LAQ, heel/toe raises, shoulder shrugs, x 10. Standing: hip abd bilaterally x 10. Patient instructed to try standing abd at home at countertop due to soreness during supine. Total minutes of Exercise: 33 Manual Therapy: NA HOME EXERCISE PROGRAM: pt given written HEP including AP, QS, SAQ, hip abd/add - Charges Timed Code Treatment Minutes: 33 Total Treatment Time: 33 Procedures billed for this date of service:: ex2 Assessment: Patient continues with moderate pain to both knees, particularly the R. She has initiated HEP, but did have difficulty with active hip abd/add. Patient Education: Education of diagnosis, Body/Joint mechanics, Home Exercise Program, Education of Plan of Care Patient demonstrates compliance with HEP?: Yes Short Term Goals Goal #1: Improve R knee ROM flex 90 ext 0 Goal to be met by: 02/03/18 Goal #2: R Quad strength 3/5, hamstrings 4-/5 Goal to be met by: 02/03/18 Goal #3: pt amb in dept with cane with no LOB with decreased pain Goal to be met by: 02/03/18 Goal #4: pt rate pain < 7 with activity Goal to be met by: 02/03/18 Snf Goals Goal #1: pt independent with HEP Goal to be met by: 02/18/18 (20%) Progress towards goal: Progressing Goal #2: pt rate pain <5/10 with activity Goal to be met by: 02/18/18 Goal #3: Improve LE functional score to 30/80 Goal to be met by: 02/18/18 Goal #4: Improve R knee ROM Flex 95 ext 0 Goal to be met by: 02/18/18 Plan PLAN OF CARE EXPIRES ON:: 02/18/18 ORDER # VISITS AND/OR THROUGH DATE: 02/18/18 PLAN: continue BIW for therex to both knees
--- NOTE | 2018-01-26 14:41 | RS.OPPTDN ---
Subjective Date of Note: 01/26/18 Visit #: 3 Date of Evaluation: 01/20/18 Payer Source: Medicaid Treatment Diagnosis: R knee pain Current Subjective/complaints:: Patient says she had her cardiac echo yesterday , but has not really had anyone tell her the results. She says her swelling is down in her legs and expresses happiness about it. She says she is trying to drink more water and being aware of posture and performing HEP as often as she can. She says she did not have any pain, but just fatigue with recent exercises. *Precautions: n/a Pain Assessment - Pain Description Pain Location: R knee more than L, popping throughout ROM to the R knee Interventions - Exercise/Activities/Manual Therapy Exercises/Activities: Patient performs bilateral LE general strengthening exercises: QS, heel slides, hip abd/add, pillow squeezes, SAQ 1 1/2#, DF red tband, all 2x10. Sitting: LAQ, heel/toe raises, shoulder shrugs, x 10, 1# wand for bilateral shoulder flexion and red tband scap retraction x 10. Standing: hip abd bilaterally, marching, and heel raises x 10. Total minutes of Exercise: 38 Manual Therapy: NA HOME EXERCISE PROGRAM: pt given written HEP including AP, QS, SAQ, hip abd/add - Charges Timed Code Treatment Minutes: 38 Total Treatment Time: 38 Procedures billed for this date of service:: ex3 Assessment: Patient demo decreased LE edema bilaterally today. She amb with swivel cane today to the L side. She demo continuous crepitus to the R knee, but able to perform all therex well. Patient Education: Body/Joint mechanics, Home Exercise Program, Education of Plan of Care Patient demonstrates compliance with HEP?: Yes Short Term Goals Goal #1: Improve R knee ROM flex 90 ext 0 Goal to be met by: 02/03/18 Progress towards Goal:: Progressing Goal #2: R Quad strength 3/5, hamstrings 4-/5 Goal to be met by: 02/03/18 Progress towards Goal:: Progressing Goal #3: pt amb in dept with cane with no LOB with decreased pain Goal to be met by: 02/03/18 Goal #4: pt rate pain < 7 with activity Goal to be met by: 02/03/18 Custodial Goals Goal #1: pt independent with HEP Goal to be met by: 02/18/18 (20%) Progress towards goal: Progressing Goal #2: pt rate pain <5/10 with activity Goal to be met by: 02/18/18 Goal #3: Improve LE functional score to 30/80 Goal to be met by: 02/18/18 Goal #4: Improve R knee ROM Flex 95 ext 0 Goal to be met by: 02/18/18 Plan PLAN OF CARE EXPIRES ON:: 02/18/18 ORDER # VISITS AND/OR THROUGH DATE: 02/18/18 PLAN: Patient to continue for therex to build bilateral knee strength and ROM to assist with amb
== END 2018-01-31 23:59 ==
PROVIDERS: ATTEND Physician Assistant
DX: M25.561 Pain in right knee (principal)

== ENCOUNTER 2018-02-09 11:08 | Outpatient (RCR) ==
--- NOTE | 2018-02-01 10:45 | RS.CXNS ---
Date of scheduled appointment: 02/01/18 Type: Cancel Reason for Cancel/NS: not feeling well
--- NOTE | 2018-02-09 15:00 | RS.OPPTDN ---
Subjective Date of Note: 02/09/18 Visit #: 4 Date of Evaluation: 01/21/15 Payer Source: Medicaid Treatment Diagnosis: Left knee pain Current Subjective/complaints:: Patient says she is feeling a little better. Reports she was sick all last week, but has been trying to walk more, work on HEP, and drinking more water. She says she is concerned about upcoming higher temperatures aggravating her asthma. Pain Assessment - Pain Description Pain Location: C/o R patellar pain Interventions - Exercise/Activities/Manual Therapy Exercises/Activities: Patient performs bilateral LE general strengthening exercises: QS, heel slides, hip abd/add, progressed to ball squeezes, SAQ 1 1/2 #, DF red latex free tband, all 2x10. Alt LE lift x 10. Sitting: LAQ, heel/ toe raises, shoulder shrugs, x 10, 1# wand for bilateral shoulder flexion and red tband scap retraction x 10. Avoided standing therex as patient still not feeling well. Patient requires intermittent rest breaks. We discussed education on diagnosis, better body mechanics, HeP, and general nutrition to improve inflammation. Total minutes of Exercise: 33 Manual Therapy: NA HOME EXERCISE PROGRAM: quads sets, SAQ's, and hip abduction/adduction - Charges Timed Code Treatment Minutes: 33 Total Treatment Time: 33 Procedures billed for this date of service:: ex2 Assessment: Patient continues to feel somewhat ill from last week and missing therapy. She is experiencing R knee pain under the patella. She appears to be performing HEP and attentive to nutritional changes. Patient Education: Education of diagnosis, Body/Joint mechanics, Home Exercise Program, Education of Plan of Care Patient demonstrates compliance with HEP?: Yes Short Term Goals Goal #1: Left quad strength improved to 4+/5. Goal to be met by: 01/31/15 Progress towards Goal:: Progressing Goal #2: Left HS strength improved to 4+/5. Goal to be met by: 01/31/15 Progress towards Goal:: Progressing Goal #3: Patient to demonstrate appropriate use of cane with ambulation. 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 Goal to be met by: 02/18/15 Progress towards goal: Progressing Goal #2: Patient able to tolerate standing and walking with pain <6/10. Goal to be met by: 02/18/15 Progress towards goal: Progressing Goal #3: Score on LE functional scale improved to 30/80. Goal to be met by: 02/18/15 Plan PLAN OF CARE EXPIRES ON:: 02/18/18 ORDER # VISITS AND/OR THROUGH DATE: 2x/wk x 3 weeks PLAN: Continue BIW x 1 more week
--- NOTE | 2018-03-04 16:24 | RS.QUICKDC ---
Discharge from PT Date of Discharge: 03/04/18 Number of Visits: 4 Reason for Discharge: Patient has no showed and not contacted our dept to further POC. No goals met subsequently. She had performed general LE exercises with a HEP also. Patient had not reported any significant change in symptoms.
== END 2018-03-03 23:59 ==
PROVIDERS: ATTEND Physician Assistant
DX: M25.561 Pain in right knee (principal); G89.29 Other chronic pain; M25.40 Effusion, unspecified joint; M25.60 Stiffness of unspecified joint, not elsewhere classified; M62.81 Muscle weakness (generalized); M19.90 Unspecified osteoarthritis, unspecified site

== ENCOUNTER 2018-02-15 08:38 | Outpatient (CLI) ==
--- NOTE | 2018-02-15 10:27 | CT ---
Exam: CTA chest with intravenous contrast, PE protocol with 3-D MIP reformatted images. Comparison: 07/11/2015. Reason for exam: Dyspnea. FINDINGS: Contrast bolus timing is not optimized for evaluation of the pulmonary arterial vasculatur e. No saddle, main, or proximal pulmonary emboli are seen. The mid and distal pulmonary arterial vascul ature is incompletely evaluated. No pneumothorax, pleural effusion, or focal consolidation. There is mild basilar atelectasis. Groun d-glass micronodules are seen in the right middle and right and left lower lobes. There is mild basi lar atelectasis. The thyroid appears mildly prominent in size. The heart is not enlarged. The aort a is normal in course and caliber. The liver is lower in density than the spleen on the contrasted s tudy. Old granulomas disease is seen within the splenic parenchyma. No suspicious appearing osteoblastic or osteolytic lesions. Impression: 1. No saddle, main, or proximal pulmonary embolus is seen. Contrast bolus timing is not optimized fo r evaluation of the mid and distal pulmonary arterial vasculature. If clinical concern exists, VQ im aging may be performed for further characterization. 2. No pneumothorax, pleural effusion, or focal consolidation. 3. Ground-glass micronodules in the right middle and both lower lobes. Imaging findings may represe nt inflammation or early infection. 6-month follow-up imaging may be performed to document resolutio n.
== END 2018-02-15 08:39 | disposition home or self-care (01) ==
LOC: RAD 08:38
PROVIDERS: ATTEND Physician Assistant
DX: R06.00 Dyspnea, unspecified (principal); E55.9 Vitamin D deficiency, unspecified
CPT/HCPCS: 36415; 82306; 82565

== ENCOUNTER 2018-04-18 11:48 | Outpatient (CLI) | END 2018-04-18 11:49 | disposition home or self-care (01) | LOC: LAB 11:48 | PROVIDERS: ATTEND Physician Assistant | DX: R53.83 Other fatigue (principal); D64.9 Anemia, unspecified | CPT/HCPCS: 36415; 80053; 82607; 82746; 85025 ==

== ENCOUNTER 2018-05-31 10:20 | Outpatient (CLI) | END 2018-05-31 10:21 | disposition home or self-care (01) | LOC: LAB 10:20 | PROVIDERS: ATTEND Physician Assistant | DX: E87.6 Hypokalemia (principal) | CPT/HCPCS: 36415; 80053 ==

== ENCOUNTER 2018-05-31 15:02 | Emergency (ER) ==
[2018-05-31 15:17] VITALS: BP 127/86; TEMP 98.7
[2018-05-31 15:37] VITALS: BMI 69.6
--- NOTE | 2018-05-31 16:41 | ED.PDOC ---
General ED Provider: Dr. LG CARROLL Chief Complaint: Abnormal Labs Stated Complaint: Low potassium level, weakness Time Seen by Physician: 16:20 Mode of Arrival: Walk-In Information Source: Patient Exam Limitations: No limitations Primary Care Provider: RAFA ETIENNE Nursing and Triage Documentation Reviewed and Agree: Yes Does patient meet sepsis criteria?: No Sepsis Protocol: For patient's 13 years and over: Temp is 96.8 and below OR 101 and greater Pulse >90 BPM Resp >20/minute Acutely Altered Mental Status Are patient's symptoms suggestive of a new infection, such as: -Pneumonia -Skin, Soft Tissue -Endocarditis -UTI -Bone, Joint Infection -Implantable Device -Acute Abdominal Infection -Wound Infection -Meningitis -Blood Stream Catheter Infection -Unknown Endocrine Complaint Exam - Diabetic Complication Complaint/Exam Onset/Duration: today Symptoms Are: Still present Timing: Intermittent Initial Severity: Moderate Current Severity: Moderate Character: Alert Past Medical History - Past Medical History Previously Healthy: No Endocrine: Reports: Hypothyroid, Dyslipidemia Cardiovascular: Reports: Hypertension Respiratory: Reports: COPD, Asthma Hematological: Reports: None Gastrointestinal: Reports: None, GERD Genitourinary: Reports: None Neuro/Psych: Reports: Anxiety, Depression Musculoskeletal: Reports: Arthritis, Unknown Cancer: Reports: None Last Menstrual Period: YEARS Other Pertinent Past Medical History: ESS, EMPTY SELLA SYNDROME,oab, - Surgical History General Surgical History: Reports: Cholecystectomy, Tonsillectomy, Orthopedic ( LEFT CARPAL TUNnEL ), Other (Teeth Extractions BIOPSY AND SKIN TAG REMOVAL) - Family History Family History: Reports: Unknown - Social History Smoking Status: Never smoker Hx Substance Use: No Alcohol Screening: None Course - Course Orders, Labs, Meds: Orders Category Date Time Status EKG-(ED ONLY) Stat CARDIO 05/31/18 16:38 Ordered IV [ED IV/MEDIPORT/POWERPORT] .ONCE EMERGENCY 05/31/18 16:37 Ordered BMP [BASIC METABOLIC PANEL] Stat LAB 05/31/18 16:36 Ordered MAGNESIUM Stat LAB 05/31/18 16:36 Ordered 0.9 % Sodium Chloride [Saline Flush] MEDS 05/31/18 16:37 Ordered 1 syr IVF PRN PRN Medications Generic Name Dose Route Start Last Admin Trade Name Freq PRN Reason Stop Dose Admin Sodium Chloride 1 syr 05/31/18 16:37 Saline Flush IVF PRN PRN To flush IV Vital Signs: Temp Pulse Resp BP Pulse Ox 05/31/18 15:12 98.7 F 100 H 22 127/86 94 L Departure - Departure Allergies/Adverse Reactions: Allergies tetanus toxoid, adsorbed Adverse Reaction (Verified 05/31/18 15:06) theophylline Adverse Reaction (Verified 05/31/18 15:06) cloth tape Allergy (Mild, Uncoded 05/31/18 15:06) breaks out skin pneumonia vaccine Adverse Reaction (Uncoded 05/31/18 15:06) Home Medications: Ambulatory Orders Medroxyprogesterone Acetate [Provera] 10 mg PO DAILY 08/20/14 [place]-3 Fatty Acids/Fish Oil [Fish Oil 1,000 mg Capsule] 1 each PO BID 12/12/14 Ipratropium/Albuterol Neb [Duoneb] 1 vial NEB RTBID #20 vial.neb 11/07/15 Cholecalciferol (Vitamin D3) [Vitamin D3] 5,000 unit PO WEEKLY 06/16/16 Cyanocobalamin (Vitamin B-12) [Vitamin B-12] 1,000 mcg IJ MONTHLY #1 vial Citalopram Hydrobromide [Celexa] 40 mg PO BEDTIME #30 07/23/16 Clonazepam 0.5 mg PO QID #120 07/23/16 Trazodone HCl 150 mg PO BEDTIME #30 07/23/16 [place] Carbonate [[place] Carbonate Er] 450 mg PO BEDTIME #30 10/29/16 Oxybutynin Chloride [Ditropan Xl] 10 mg PO DAILY 12/14/16 Budesonide/Formoterol Fumarate [Symbicort 160-4.5 Mcg Inhaler] 10.2 gm IH DAILY 03/12/17 Levothyroxine Sodium 112 mcg PO DAILY 03/12/17 Potassium Chloride [K-Dur] 20 meq PO DIRECTED 07/17/17 Potassium Chloride [K-Dur] 40 meq PO DIRECTED 07/17/17 Medroxyprogesterone Acetate [Provera] 10 mg PO DAILY 05/31/18
--- NOTE | 2018-05-31 16:46 | ED.PDOC ---
Medical Screening Exam - General Information Time Seen by Physician*: 16:15 Mode of Arrival: Walk-In Information Source: Patient - History Chief Complaint: Abnormal Labs Stated Complaint: Outpatient lab this AM showed her Serum Potassium level decreased to 2.5 therefore was referred her for additional evaluaiton and treatment. No other complaints. Onset/Duration: THIS AM Symptoms Are: Still present Timing: Intermittent Severity: None - Review Of Systems Constitutional: None CV: Reports: None Respiratory: Reports: None GI: Reports: None : Reports: None Musculoskeletal: Reports: None Neuro: Reports: None - Examination Findings Other Examination Findings: Moribid obesity Visit Related to : No Physical Exam - Physical Exam Appearance: Ill-appearing, Obese Ill-appearing: Mild Eyes: LUIS, EOMI, Conjunctiva clear ENT: Ears normal, Nose normal, Oropharynx normal Respiratory: Airway patent, Breath sounds clear, Breath sounds equal, Respirations nonlabored Cardiovascular: RRR, Pulses normal, No rub, No murmur GI/: Soft (obese), Nontender, No masses, Bowel sounds normal, Splenomegaly Musculoskeletal: Normal strength, ROM intact, No edema, No calf tenderness, Limited ROM, Limited strength, Edema, Calf tenderness Skin: Warm Neurological: Sensation intact, Motor intact, Cranial nerves intact, Alert, Oriented Psychiatric: Affect appropriate, Mood appropriate Re-Evaluation - Re-Evaluation Time of Re-Evaluation: 16:25 Status: Unchanged Vital Signs Stable: Yes Appearance: NAD Lungs: Clear Skin: Warm and Dry Neuro: Alert and Oriented X3 CV: RRR Critical Care Note - Critical Care Note Total Time (mins): 0 Course - Course Hematology/Chemistry: 05/31/18 17:28 Orders, Labs, Meds: Lab Review 05/31/18 17:28 Sodium 140 Potassium 3.1 L Chloride 102 Carbon Dioxide 30 Anion Gap 11.1 BUN 8 Creatinine 1.02 Estimated GFR (MDRD) 62.00 BUN/Creatinine Ratio 7.84 Glucose 91 Calcium 9.7 Magnesium 2.0 Orders Category Date Time Status EKG-(ED ONLY) Stat CARDIO 05/31/18 16:38 Completed IV [ED IV/MEDIPORT/POWERPORT] .ONCE EMERGENCY 05/31/18 16:37 Active BMP [BASIC METABOLIC PANEL] Stat LAB 05/31/18 17:28 Completed MAGNESIUM Stat LAB 05/31/18 17:28 Completed 0.9 % Sodium Chloride [Saline Flush] MEDS 05/31/18 16:37 Active 1 syr IVF PRN PRN Medications Generic Name Dose Route Start Last Admin Trade Name Freq PRN Reason Stop Dose Admin Sodium Chloride 1 syr 05/31/18 16:37 Saline Flush IVF PRN PRN To flush IV Vital Signs: Temp Pulse Resp BP Pulse Ox 05/31/18 15:12 98.7 F 100 H 22 127/86 94 L Departure - Departure Time of Disposition: 18:10 Disposition: HOME SELF-CARE Discharge Problem: Hypokalemia Condition: Fair Pt referred to PMD for follow-up: Yes IPMP verified?: No Allergies/Adverse Reactions: Allergies tetanus toxoid, adsorbed Adverse Reaction (Verified 05/31/18 15:06) theophylline Adverse Reaction (Verified 05/31/18 15:06) cloth tape Allergy (Mild, Uncoded 05/31/18 15:06) breaks out skin pneumonia vaccine Adverse Reaction (Uncoded 05/31/18 15:06) Home Medications: Ambulatory Orders Medroxyprogesterone Acetate [Provera] 10 mg PO DAILY 08/20/14 [place]-3 Fatty Acids/Fish Oil [Fish Oil 1,000 mg Capsule] 1 each PO BID 12/12/14 Ipratropium/Albuterol Neb [Duoneb] 1 vial NEB RTBID #20 vial.neb 11/07/15 Cholecalciferol (Vitamin D3) [Vitamin D3] 5,000 unit PO WEEKLY 06/16/16 Cyanocobalamin (Vitamin B-12) [Vitamin B-12] 1,000 mcg IJ MONTHLY #1 vial Citalopram Hydrobromide [Celexa] 40 mg PO BEDTIME #30 07/23/16 Clonazepam 0.5 mg PO QID #120 07/23/16 Trazodone HCl 150 mg PO BEDTIME #30 07/23/16 [place] Carbonate [[place] Carbonate Er] 450 mg PO BEDTIME #30 10/29/16 Oxybutynin Chloride [Ditropan Xl] 10 mg PO DAILY 12/14/16 Budesonide/Formoterol Fumarate [Symbicort 160-4.5 Mcg Inhaler] 10.2 gm IH DAILY 03/12/17 Levothyroxine Sodium 112 mcg PO DAILY 03/12/17 Potassium Chloride [K-Dur] 20 meq PO DIRECTED 07/17/17 Potassium Chloride [K-Dur] 40 meq PO DIRECTED 07/17/17 Medroxyprogesterone Acetate [Provera] 10 mg PO DAILY 05/31/18 Potassium Chloride [K-Dur] 20 meq PO DAILY #30 tablet.er 05/31/18 Disposition Discussed With: Patient (Take potassium as directed and follow up for recheck of potassium level this Wednesday)
[2018-05-31] MEDS ORDERED: K-DUR PO STA (18:12)
== END 2018-05-31 18:32 | disposition home or self-care (01) ==
LOC: ED 15:02
DX: E87.6 Hypokalemia (principal); R53.1 Weakness; Z79.899 Other long term (current) drug therapy
CPT/HCPCS: 36415; 80048; 80053; 83735; 93005; 93010; 99283

== ENCOUNTER 2018-06-08 12:05 | Outpatient (CLI) | END 2018-06-08 12:06 | disposition home or self-care (01) | LOC: CAR 12:05 | PROVIDERS: ATTEND Physician Assistant | DX: R60.9 Edema, unspecified (principal) | CPT/HCPCS: 36415; 80053 ==

== ENCOUNTER 2018-06-16 10:35 | Outpatient (CLI) | END 2018-06-16 10:36 | disposition home or self-care (01) | LOC: LAB 10:35 | PROVIDERS: ATTEND Physician Assistant | DX: E87.6 Hypokalemia (principal) | CPT/HCPCS: 36415; 80053 ==

== ENCOUNTER 2018-06-20 14:12 | Outpatient (CLI) | END 2018-06-20 14:13 | disposition home or self-care (01) | LOC: LAB 14:12 | PROVIDERS: ATTEND Nurse Practitioner | DX: E06.3 Autoimmune thyroiditis (principal); E22.9 Hyperfunction of pituitary gland, unspecified; E34.9 Endocrine disorder, unspecified; E53.8 Deficiency of other specified B group vitamins; E55.9 Vitamin D deficiency, unspecified; E87.6 Hypokalemia | CPT/HCPCS: 36415; 80053; 82306; 82607; 84146; 84439; 84443 ==

== ENCOUNTER 2018-07-07 06:26 | Outpatient (CLI) | END 2018-07-07 06:27 | disposition home or self-care (01) | LOC: LAB 06:26 | PROVIDERS: ATTEND Physician Assistant | DX: R60.0 Localized edema (principal); E53.8 Deficiency of other specified B group vitamins | CPT/HCPCS: 36415; 80053; 82607 ==

== ENCOUNTER 2018-08-11 10:21 | Outpatient (CLI) | END 2018-08-11 10:22 | disposition home or self-care (01) | LOC: LAB 10:21 | PROVIDERS: ATTEND Physician Assistant | DX: E03.9 Hypothyroidism, unspecified (principal); E87.6 Hypokalemia; L65.9 Nonscarring hair loss, unspecified | CPT/HCPCS: 36415; 80053; 82306; 84443; 85025 ==

== ENCOUNTER 2018-10-13 11:12 | Outpatient (CLI) | END 2018-10-13 11:13 | disposition home or self-care (01) | LOC: LAB 11:12 | PROVIDERS: ATTEND Nurse Practitioner Family | DX: E87.6 Hypokalemia (principal) | CPT/HCPCS: 36415; 80053 ==

== ENCOUNTER 2018-11-07 10:29 | Outpatient (CLI) | END 2018-11-07 10:30 | disposition home or self-care (01) | LOC: LAB 10:29 | PROVIDERS: ATTEND Nurse Practitioner Family | DX: E66.01 Morbid (severe) obesity due to excess calories (principal); R53.83 Other fatigue; E53.8 Deficiency of other specified B group vitamins; E87.6 Hypokalemia; E03.9 Hypothyroidism, unspecified; Z13.220 Encounter for screening for lipoid disorders | CPT/HCPCS: 36415; 80053; 80061; 82306; 82607; 83036; 84443 ==

== ENCOUNTER 2018-12-14 08:53 | Outpatient (CLI) | END 2018-12-14 08:54 | disposition home or self-care (01) | LOC: LAB 08:53 | PROVIDERS: ATTEND Nurse Practitioner Family | DX: E55.9 Vitamin D deficiency, unspecified (principal); E87.6 Hypokalemia; E53.8 Deficiency of other specified B group vitamins; F32.81 Premenstrual dysphoric disorder; F41.8 Other specified anxiety disorders | CPT/HCPCS: 36415; 80053; 80178; 82306; 82607; 93005; 93010 ==

== ENCOUNTER 2019-01-09 15:13 | Outpatient (CLI) | END 2019-01-09 15:14 | disposition home or self-care (01) | LOC: LAB 15:13 | PROVIDERS: ATTEND Nurse Practitioner Family | DX: E87.6 Hypokalemia (principal) | CPT/HCPCS: 36415; 80053 ==

== ENCOUNTER 2019-01-13 14:22 | Outpatient (CLI) | END 2019-01-13 14:23 | disposition home or self-care (01) | LOC: LAB 14:22 | PROVIDERS: ATTEND Nurse Practitioner Family | DX: E87.6 Hypokalemia (principal) | CPT/HCPCS: 36415; 80053 ==

== ENCOUNTER 2019-02-03 09:32 | Outpatient (CLI) | END 2019-02-03 09:33 | disposition home or self-care (01) | LOC: LAB 09:32 | PROVIDERS: ATTEND Nurse Practitioner Family | DX: E78.2 Mixed hyperlipidemia (principal); E87.6 Hypokalemia; E66.01 Morbid (severe) obesity due to excess calories; E03.9 Hypothyroidism, unspecified; R60.0 Localized edema | CPT/HCPCS: 36415; 80053; 80061; 83036; 84443; 85025 ==

== ENCOUNTER 2019-02-13 12:00 | Outpatient (CLI) | END 2019-02-13 12:01 | disposition home or self-care (01) | LOC: LAB 12:00 | PROVIDERS: ATTEND Nurse Practitioner Family | DX: D64.9 Anemia, unspecified (principal); Z00.00 Encounter for general adult medical examination without abnormal findings | CPT/HCPCS: 36415; 82728; 83540; 83550; 86900; 86901 ==

== ENCOUNTER 2019-02-21 06:45 | Outpatient (CLI) | END 2019-02-21 06:46 | disposition home or self-care (01) | LOC: LAB 06:45 | PROVIDERS: ATTEND Nurse Practitioner Family | DX: D64.9 Anemia, unspecified (principal) | CPT/HCPCS: 36415; 85025 ==

== ENCOUNTER 2019-03-23 08:09 | Outpatient (CLI) ==
--- NOTE | 2019-03-23 10:11 | DI ---
EXAM: Three views of the right knee. History: Right knee pain. Findings: No acute fracture or dislocation. Moderate to severe narrowing of the medial compartment. Mild to moderate narrowing of the lateral and patellofemoral compartments. There is marginal scler osis and osteophyte formation. Impression: 1. No acute osseous abnormality. 2. Tricompartmental osteoarthritis
== END 2019-03-23 08:10 | disposition home or self-care (01) ==
LOC: RAD 08:09
PROVIDERS: ATTEND Nurse Practitioner Family
DX: E87.6 Hypokalemia (principal); E03.9 Hypothyroidism, unspecified; M25.561 Pain in right knee
CPT/HCPCS: 36415; 80053; 84439; 84443

== ENCOUNTER 2019-03-30 11:29 | Emergency (ER) ==
[2019-03-30] MEDS ORDERED: SODIUM BICARBONATE 7.5% IVP PRN (11:30)
[2019-03-30] MEDS ORDERED: ATROPINE SULFATE PFS IVP PRN (11:30)
[2019-03-30 11:39] VITALS: TEMP 96.3
[2019-03-30] MEDS: EPINEPHRINE 1 MG/10 ML SYRINGE IV PRN ×7 (11:41→12:02)
--- NOTE | 2019-03-30 11:50 | ED.PDOC ---
General ED Provider: Dr. LG CARROLL Chief Complaint: Cardiac Arrest Stated Complaint: Collapsed at home. Helped to chair, weak and diaphoretic then fell face forward out of chair to [id number] arrest. EMS summoned Time Seen by Physician: 11:35 Mode of Arrival: Ambulance Information Source: Family, EMT Exam Limitations: Clinical condition Primary Care Provider: WALT MOROCHO Nursing and Triage Documentation Reviewed and Agree: Yes Does patient meet sepsis criteria?: No System Inflammatory Response Syndrome: Not Applicable Sepsis Protocol: For patient's 13 years and over: Temp is 96.8 and below OR 101 and greater Pulse >90 BPM Resp >20/minute Acutely Altered Mental Status Are patient's symptoms suggestive of a new infection, such as: -Pneumonia -Skin, Soft Tissue -Endocarditis -UTI -Bone, Joint Infection -Implantable Device -Acute Abdominal Infection -Wound Infection -Meningitis -Blood Stream Catheter Infection -Unknown Cardiac Resuscitation - Cardiac Resuscitation/Physical Exam Onset/Duration: Minutes (30) Witnessed Arrest: Yes Down-time Before ALS Initiated: 10 min Airway Prehospital Findings: Reports: Patent Breathing Prehospital Findings: Reports: Apnea Circulation/Rhythm Prehospital Findings: Reports: Pulses absent, Asystole Disability/Neurological Prehospital Findings: Reports: Unresponsive Airway Prehospital Intervention: Reports: Chin lift, Jaw thrust Circulation/Rhythm Prehospital Intervention: Reports: Chest compressions Circulation/Rhythm Prehospital Response: Present: Pulses absent, Asystole Total Down Time WINE 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: 20 min Airway ED Findings: Patent Breathing ED Findings: Present: Apnea Circulation/Rhythm ED Findings: Present: Pulses absent Disability/Neurological ED Findings: Present: Unresponsive Airway ED Intervention: Chin lift, Jaw thrust, Oral airway Breathing ED Intervention: Oxygen Circulation/Rhythm ED Intervention: Chest compressions Breathing ED Response: Confirmed by auscultation, Confirmed by CO2 detector Circulation/Rhythm ED Response: Present: Pulses present, Pulses absent Right Pupil: Fixed, Dilated Left Pupil: Fixed, Dilated Review Of Systems: Unable due to extremis EMS/Code Sheet Reviewed: Yes Patient is a DNR: No Patient Has a Living Will: No Resuscitation Successful: No Preliminary Cause of : Cardiac arrest Differential Diagnoses: Acute [place], Card. Rhythm Disturbance, Drug Overdose, Pulmonary Edema, Sudden Past Medical History - Past Medical History Previously Healthy: No Endocrine: Reports: Hypothyroid, Dyslipidemia Cardiovascular: Reports: Hypertension Respiratory: Reports: COPD, Asthma Hematological: Reports: None Gastrointestinal: Reports: None, GERD Genitourinary: Reports: None Neuro/Psych: Reports: Anxiety, Depression Musculoskeletal: Reports: Arthritis, Unknown Cancer: Reports: None Last Menstrual Period: unknown Other Pertinent Past Medical History: ESS, EMPTY SELLA SYNDROME,oab, - Surgical History General Surgical History: Reports: Cholecystectomy, Tonsillectomy, Orthopedic ( LEFT CARPAL TUNnEL ), Other (Teeth Extractions BIOPSY AND SKIN TAG REMOVAL) - Family History Family History: Reports: Unknown - Social History Smoking Status: Never smoker Hx Substance Use: No Alcohol Screening: None Interpretation - [employer] Ectopy: None Procedures - Intubation Medications: Yes: Norcuron Glidescope Used: No CO2 Detector Used: Yes Lung Sounds Equal Bilaterally: Yes Tube Placement Verified by X-ray: Yes Re-Evaluation - Re-Evaluation Status: Worse Critical Care Note - Critical Care Note Total Time (mins): 60 Course - Course Hematology/Chemistry: 03/30/19 11:40 03/30/19 11:40 Orders, Labs, Meds: Lab Review 03/30/19 03/30/19 11:40 11:40 WBC 14.22 H RBC 4.43 Hgb 13.1 Hct 45.0 MCV 101.6 H MCH 29.6 MCHC 29.1 L RDW Coeff of [place] 14.2 Plt Count 121 L Immature Gran % (Auto) 0.3 Neut % (Auto) 55.2 Lymph % (Auto) 33.5 Chambers % (Auto) 7.7 Eos % (Auto) 2.7 Baso % (Auto) 0.6 Immature Gran # (Auto) 0.0 Neut # (Auto) 7.9 H Lymph # (Auto) 4.8 H Chambers # (Auto) 1.1 Eos # (Auto) 0.4 Baso # (Auto) 0.1 Sodium 139.8 Potassium 3.86 Chloride 106.5 Carbon Dioxide 14.3 L Anion Gap 22.86 BUN 12.4 Creatinine 1.32 H Estimated GFR (MDRD) 46.00 BUN/Creatinine Ratio 9.39 Glucose 116.8 H Calcium 8.96 Total Bilirubin 1.08 AST 19.1 ALT 16.1 Alkaline Phosphatase 54.0 Troponin I 0.087 Total Protein 6.22 L Albumin 3.50 Globulin 2.72 Albumin/Globulin Ratio 1.28 Orders Category Date Time Status ED APPRENTICE COSMETOLOGIST APPLIED .ONCE EMERGENCY 03/30/19 12:03 Active ED DEFIBRILLATE PATIENT PRN EMERGENCY 03/30/19 12:03 Active ED IV/MEDIPORT/POWERPORT .ONCE EMERGENCY 03/30/19 12:03 Active ABG Stat LAB 03/30/19 11:49 Ordered CBC W/ AUTO DIFF Stat LAB 03/30/19 11:40 Completed CMP [COMPREHENSIVE METABOLIC PANEL] Stat LAB 03/30/19 11:40 Completed TROPONIN I Stat LAB 03/30/19 11:40 Completed 0.9 % Sodium Chloride [Saline Flush] MEDS 03/30/19 12:03 Active 1 syr IVF PRN PRN Atropine Sulfate Inj [Atropine Sulfate Pfs] MEDS 03/30/19 11:30 Active 1 mg IVP PRN PRN Epinephrine [Epinephrine 1 mg/10 ml Syringe] MEDS 03/30/19 11:35 Active 1 mg IV PRN PRN Sodium Bicarb 7.5% [Sodium Bicarbonate 7.5%] MEDS 03/30/19 11:30 Active 44.6 meq IVP PRN PRN CHEST, 1V AP ONLY Stat RADS 03/30/19 11:48 Completed Medications Generic Name Dose Route Start Last Admin Trade Name Freq PRN Reason Stop Dose Admin Atropine Sulfate 1 mg 03/30/19 11:30 Atropine Sulfate Pfs IVP PRN PRN DIRECTED BY PHYSICIAN-CODE Epinephrine HCl 1 mg 03/30/19 11:35 03/30/19 12:02 Epinephrine 1 Mg/10 Ml Syringe IV 1 mg PRN PRN Administration DIRECTED BY PHYSICIAN-CODE Sodium Bicarbonate 44.6 meq 03/30/19 11:30 03/30/19 11:45 Sodium Bicarbonate 7.5% IVP 44.6 meq PRN PRN Administration DIRECTED BY PHYSICIAN-CODE Sodium Chloride 1 syr 03/30/19 12:03 Saline Flush IVF PRN PRN To flush IV Vital Signs: Temp Pulse Resp BP Pulse Ox 03/30/19 12:24 0 L 0 L 00/00 L 03/30/19 11:30 96.3 F L 0 L 0 L 0/0 L 89 L Departure - Departure Time of Disposition: 12:40 Disposition: Discharge Problem: Cardiac arrest, Sudden cardiac Condition: Pt referred to PMD for follow-up: No IPMP verified?: No Additional Instructions: 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 [employer] Allergies/Adverse Reactions: Allergies tetanus toxoid, adsorbed Adverse Reaction (Verified 05/31/18 15:06) theophylline Adverse Reaction (Verified 05/31/18 15:06) cloth tape Allergy (Mild, Uncoded 05/31/18 15:06) breaks out skin pneumonia vaccine Adverse Reaction (Uncoded 05/31/18 15:06) Home Medications: Ambulatory Orders Medroxyprogesterone Acetate [Provera] 10 mg PO DAILY 08/20/14 [place]-3 Fatty Acids/Fish Oil [Fish Oil 1,000 mg Capsule] 1 each PO BID 12/12/14 Ipratropium/Albuterol Neb [Duoneb] 1 vial NEB RTBID #20 vial.neb 11/07/15 Cholecalciferol (Vitamin D3) [Vitamin D3] 5,000 unit PO WEEKLY 06/16/16 Cyanocobalamin (Vitamin B-12) [Vitamin B-12] 1,000 mcg IJ MONTHLY #1 vial Citalopram Hydrobromide [Celexa] 40 mg PO BEDTIME #30 07/23/16 Clonazepam 0.5 mg PO QID #120 07/23/16 Trazodone HCl 150 mg PO BEDTIME #30 07/23/16 [place] Carbonate [[place] Carbonate Er] 450 mg PO BEDTIME #30 10/29/16 Oxybutynin Chloride [Ditropan Xl] 10 mg PO DAILY 12/14/16 Budesonide/Formoterol Fumarate [Symbicort 160-4.5 Mcg Inhaler] 10.2 gm IH DAILY 03/12/17 Levothyroxine Sodium 112 mcg PO DAILY 03/12/17 Potassium Chloride [K-Dur] 20 meq PO DIRECTED 07/17/17 Potassium Chloride [K-Dur] 40 meq PO DIRECTED 07/17/17 Medroxyprogesterone Acetate [Provera] 10 mg PO DAILY 05/31/18 Potassium Chloride [K-Dur] 20 meq PO DAILY #30 tablet.er 05/31/18 Disposition Discussed With: Family
--- NOTE | 2019-03-30 12:15 | DI ---
EXAM: Frontal chest HISTORY: Recent intubation. FINDINGS: Compared to 01/21/2018. There is an endotracheal tube present in good position radiograph ically ending superimposed over the tracheal air column in place with the tip of the tube ending near the origin of the right main stem bronchus, low. Prominent heart size. Limited exam reveals mild c entral vascular congestion. Right perihilar and basilar consolidation is suggested in possibly relat ed atelectasis or pneumonia. No visible pleural fluid or pneumothorax. IMPRESSION: 1. Endotracheal tube tip ends at the origin of the right main stem bronchus, low. Adjustment recomm ended. 2. Possible left lung pneumonia versus atelectasis. 3. Mild central vascular congestion. .
[2019-03-30 12:18] VITALS: BMI 67.0
[2019-03-30 12:25] VITALS: BP 00/00
== END 2019-03-30 14:28 | disposition expired ==
LOC: ED 11:29
DX: I46.9 Cardiac arrest, cause unspecified (principal); I10 Essential (primary) hypertension; E03.9 Hypothyroidism, unspecified; E78.5 Hyperlipidemia, unspecified; J44.9 Chronic obstructive pulmonary disease, unspecified; Z79.899 Other long term (current) drug therapy
CPT/HCPCS: 36415; 80053; 84484; 85025; 96374; 96375; 99291